=== PATIENT | female | born 1945 | race African-American/Black ===

== ENCOUNTER 2022-05-12 14:18 | Emergency (ER) | payer OTHER, BC ==
[2022-05-12 14:55] VITALS: RESP 20; BMI 19.2
[2022-05-12 18:51] VITALS: BP 121/65; PULSE 119; TEMP 98.4
== END 2022-05-12 22:19 | disposition home or self-care (01) ==
LOC: JER 14:18
DX: K59.00 Constipation, unspecified (principal)
CPT/HCPCS: 36415; 82272; 99283-25